=== PATIENT | female | born 1985 | race Caucasian/White ===

== ENCOUNTER 2016-12-31 13:21 | Inpatient (IN) | payer OTHER ==
[~2016-12-31] VITALS: Ht 162.6 cm; Wt 104.8 kg
[~2016-12-31 13:21] MED LIST: BACT800T5 PO; PYRI200T4 PO
[2017-01-02] VITALS (12 sets, daily range): BP systolic 87–120; BP diastolic 52–64; PULSE 65–79; RESP 15–20; TEMP 97.5–98.6; O2SAT 96
[2017-01-02] MEDS ORDERED: LACTATED RINGER'S 1000 ML INJ 1,000 ML IV ONE (10:19)
[2017-01-02] MEDS ORDERED: LACTATED RINGER'S 1000 ML INJ 1,000 ML IV SCH ×2 (10:49→17:47)
[2017-01-02 11:26] LABS: AUTOMATED NEUTROPHIL # 7.6 TH/MM3 (1.8-7.7); BASOPHIL % 0.1 % (0.0-2.0); EOSINOPHIL # 0.1 TH/MM3 (0-0.4); EOSINOPHIL % 0.6 % (0.0-4.0); HEMATOCRIT 30.7 % (35.0-46.0); HEMO FLAGS DIFF FINAL; LYMPH % 14.5 % (9.0-44.0); LYMPHOCYTE # 1.4 TH/MM3 (1.0-4.8); MEAN CORPUSCULAR HEMOGLOBIN 26.5 PG (27.0-34.0); MEAN CORPUSCULAR HGB CONC 32.8 % (32.0-36.0); MONO % 4.6 % (0.0-8.0); NEUT % 80.2 % (16.0-70.0); PLATELET COUNT 213 TH/MM3 (150-450); RED BLOOD COUNT 3.79 MIL/MM3 (4.00-5.30); RED CELL DISTRIBUTION WIDTH 14.1 % (11.6-17.2); WHITE BLOOD COUNT 9.5 TH/MM3 (4.0-11.0)
[2017-01-02] MEDS ORDERED: ceFAZolin 2 GM PREMIX 50 ML IV SCH (11:30)
[2017-01-02 11:38] LABS: BLOOD, URINE NEG (NEG); COMMENT (UR) CULT NOT INDICATED; CULTURE IF INDICATED CULT NOT INDICATED; GLUCOSE,URINE NEG (NEG); KETONE, URINE 40 mg/dL (NEG); MUCUS URINE FEW /lpf (OCC); NITRITE,URINE NEG (NEG); PH, URINE 6.5 (5.0-8.5); SQUAMOUS EPITHELIAL CELL URINE 2 /hpf (0-5); URINE COLOR YELLOW (YELLW/STRAW)
[2017-01-02] MEDS ORDERED: PANT40TA3 PO (11:51)
[2017-01-02] MEDS ORDERED: CITRIC ACID-SODIUM CITRATE LIQ 30 ML UDC PO SCH (12:00)
[2017-01-02] MEDS ORDERED: OXYTOCIN 10 UNIT/ML AMP ONE (12:25)
[2017-01-02] MEDS ORDERED: fentaNYL CITRATE 250 MCG/5 ML AMP ONE (12:25)
[2017-01-02] MEDS ORDERED: ACETAMINOPHEN 1000 MG/100 ML VIAL IV ONE (12:25)
[2017-01-02] MEDS ORDERED: MORPHINE SULFATE PF 5 MG/10 ML VIAL ONE (12:25)
[2017-01-02] MEDS ORDERED: EPIDURAL-DIPHENHYDRAMINE HCL 50 MG CAP PO PRN (12:30)
[2017-01-02] MEDS ORDERED: EPIDURAL-NO SYSTEMIC NARCOTICS PRN (12:30)
[2017-01-02] MEDS ORDERED: EPIDURAL-DIPHENHYDRAMINE HCL 50 MG/ML VIAL IV PUSH PRN (12:30)
[2017-01-02] MEDS ORDERED: EPIDURAL-DO NOT ADMINISTER ANTICOAGULANTS PRN (12:30)
[2017-01-02] MEDS ORDERED: EPIDURAL-NALOXONE HCL 0.4 MG/ML AMP IV PRN (12:30)
[2017-01-02] MEDS ORDERED: SIMETHICONE 80 MG CHEWABLE TAB PO PRN (13:00)
[2017-01-02] MEDS ORDERED: SODIUM CHLORIDE 0.9% FLUSH 10 ML FLUSH IV FLUSH PRN (13:00)
[2017-01-02] MEDS ORDERED: KETOROLAC TROMETHAMINE 60 MG/2 ML (IM) VIAL IM PRN ×2 (13:00)
[2017-01-02] MEDS ORDERED: OXYTOCIN 30 UNITS-500ML PREMIX 500 ML IV ONE (13:00)
[2017-01-02] MEDS ORDERED: DOCUSATE SODIUM 50 MG/SENNA 8.6 MG TAB PO PRN (13:00)
[2017-01-02] MEDS ORDERED: ONDANSETRON HCL 4 MG/2 ML VIAL IV PUSH PRN (13:00)
[2017-01-02] MEDS ORDERED: DEXAMETHASONE SOD PHOS 4 MG/ML VIAL IV ONE (13:35)
[2017-01-02] MEDS ORDERED: ONDANSETRON HCL 4 MG/2 ML VIAL IV PUSH ONE (13:35)
[2017-01-02] MEDS ORDERED: KETOROLAC TROMETHAMINE 60 MG/2 ML (IM) VIAL IM ONE (14:16)
[2017-01-02] MEDS ORDERED: OXYTOCIN 30 UNITS-500ML PREMIX 500 ML ONE (14:16)
[2017-01-02] MEDS: SODIUM CHLORIDE 0.9% FLUSH 10 ML FLUSH IV FLUSH SCH (21:25)
[2017-01-02] MEDS: IBUPROFEN 600 MG TAB PO PRN (21:33)
[2017-01-02] MEDS: oxyCODONE/ACETAMINOPHEN 5 MG/325 MG TAB PO PRN (21:33)
[2017-01-02] MEDS ORDERED: OXYTOCIN 30 UNITS-500ML PREMIX 500 ML IV PRN (23:00)
[2017-01-03 00:30] VITALS: BP 99/56; PULSE 63; RESP 16; TEMP 97.7
[2017-01-03] MEDS: oxyCODONE/ACETAMINOPHEN 5 MG/325 MG TAB PO PRN ×4 (04:26→20:32)
[2017-01-03] MEDS: IBUPROFEN 600 MG TAB PO PRN ×4 (04:27→23:23)
[2017-01-03 04:30] VITALS: BP 106/71; PULSE 65; RESP 16; TEMP 97.7
[2017-01-03 05:36] LABS: AUTOMATED NEUTROPHIL # 11.3 TH/MM3 (1.8-7.7); BASOPHIL % 0.1 % (0.0-2.0); EOSINOPHIL % 0.2 % (0.0-4.0); HEMATOCRIT 29.5 % (35.0-46.0); HEMO FLAGS DIFF FINAL; LYMPH % 9.9 % (9.0-44.0); LYMPHOCYTE # 1.3 TH/MM3 (1.0-4.8); MEAN CELL VOLUME 80.7 FL (80.0-100.0); MEAN CORPUSCULAR HEMOGLOBIN 27.2 PG (27.0-34.0); MEAN CORPUSCULAR HGB CONC 33.7 % (32.0-36.0); MONO % 6.5 % (0.0-8.0); NEUT % 83.3 % (16.0-70.0); PLATELET COUNT 229 TH/MM3 (150-450); RED BLOOD COUNT 3.65 MIL/MM3 (4.00-5.30); RED CELL DISTRIBUTION WIDTH 14.4 % (11.6-17.2); WHITE BLOOD COUNT 13.5 TH/MM3 (4.0-11.0)
[2017-01-03 07:25] VITALS: BP 109/53; PULSE 62; RESP 18; TEMP 98.8
[2017-01-03] MEDS: SODIUM CHLORIDE 0.9% FLUSH 10 ML FLUSH IV FLUSH SCH ×2 (07:43→21:00)
--- NOTE | 2017-01-03 08:31 | HHI.OB ---
Subjective Post Operative Day: 1 Remarks pain controlled, mod lochia, nico po, +void Objective Vitals/I&O Vital Signs Date Time Temp Pulse Resp B/P Pulse Ox O2 Delivery O2 Flow Rate FiO2 01/03/17 07:25 109/53 01/03/17 07:25 98.8 62 18 01/03/17 04:30 65 106/71 01/03/17 04:30 97.7 16 01/03/17 00:30 97.7 63 16 99/56 01/02/17 19:45 98.6 66 18 99/63 01/02/17 18:15 70 114/64 01/02/17 17:20 98.0 01/02/17 16:35 65 20 87/53 01/02/17 14:15 98.1 01/02/17 14:15 96 01/02/17 14:15 72 16 109/52 01/02/17 14:00 73 17 117/55 01/02/17 13:45 97.5 79 17 117/57 01/02/17 10:55 72 01/02/17 10:50 78 01/02/17 10:45 98.3 15 01/02/17 10:45 72 01/02/17 10:45 76 118/62 01/02/17 10:40 70 01/02/17 10:38 66 120/60 Result Diagram: 01/03/17 0440 Objective Remarks GENERAL: Well-nourished, well-developed patient. CARDIOVASCULAR: Regular rate and rhythm without murmurs, gallops, or rubs. RESPIRATORY: Breath sounds equal bilaterally. No accessory muscle use. ABDOMEN/GI: Abdomen soft, non-tender, bowel sounds present. Incision: Clean, dry and intact. Fundus: Firm, non-tender at umbilicus. GENITOURINARY: Light to moderate bleeding. EXTREMITIES: No cyanosis or edema, non-tender, without signs of DVT. Medications and IVs Current Medications Medications (Trade) Dose Ordered Sig/Raman Route Start Time Stop Time Status Last Admin (Lr 1000 ml Inj) 1,000 ml @ 100 mls/hr Q10H IV 01/02/17 17:47 01/03/17 13:46 01/02/17 21:24 (NS Flush) 2 ml BID IV FLUSH 01/02/17 21:00 01/02/17 21:25 (NS Flush) 2 ml UNSCH PRN IV FLUSH 01/02/17 13:00 (Mylicon Chew) 80 mg QID PRN PO 01/02/17 13:00 (Motrin) 600 mg Q6H PRN PO 01/02/17 13:00 01/03/17 04:27 (Toradol Inj) 30 mg Q6H PRN IM 01/02/17 13:00 01/03/17 12:59 (Percocet 5-325 Mg) 1 tab Q4H PRN PO 01/02/17 13:00 01/03/17 04:26 (Percocet 5-325 Mg) 2 tab Q4H PRN PO 01/02/17 13:00 (Mary-Colace) 2 tab Q12H PRN PO 01/02/17 13:00 01/03/17 04:26 (M-M-R Ii Inj) 0.5 ml ONCE ONCE SQ 01/03/17 16:00 01/03/17 16:01 (Boostrix Inj) 0.5 ml ONCE ONCE IM 01/03/17 16:00 01/03/17 16:01 (Zofran Inj) 4 mg Q6H PRN IV PUSH 01/02/17 13:00 Miscellaneous Information NO SYSTEMIC NARCOTICS TO BE GIVEN FO... UNSCH PRN .XX 01/02/17 12:30 01/03/17 12:29 (Narcan Inj) 0.4 mg UNSCH PRN IV 01/02/17 12:30 01/03/17 12:29 (Benadryl Inj) 25 mg Q6H PRN IV PUSH 01/02/17 12:30 01/03/17 12:29 (Benadryl) 50 mg Q6H PRN PO 01/02/17 12:30 01/03/17 12:29 Miscellaneous Information ALL NURSING DEPARTMENTS UNSCH PRN .XX 01/02/17 12:30 01/03/17 12:29 Assessment/Plan Problem List: (1) delivery, delivered, current hospitalization Assessment and Plan routine pp care Matthew Ford MD Jan 03, 2017 08:31
[2017-01-03] MEDS ORDERED: DIPHTH/TETANUS/ACEL PERTUSSIS (BOOSTER) 0.5 ML VIAL/PFS IM ONE (16:00)
[2017-01-03] MEDS ORDERED: MEASLES, MUMPS, RUBELLA VACCINE 0.5 ML VIAL SQ ONE (16:00)
[2017-01-03 20:21] VITALS: BP 118/62; PULSE 74; RESP 18; TEMP 97.8
[2017-01-03 20:38] VITALS: BP 118/62; PULSE 74; RESP 18; TEMP 97.8
[2017-01-04] MEDS: oxyCODONE/ACETAMINOPHEN 5 MG/325 MG TAB PO PRN ×5 (04:15→23:03)
[2017-01-04 07:40] VITALS: BP 89/57; PULSE 66; RESP 16; TEMP 97.8
[2017-01-04] MEDS: IBUPROFEN 600 MG TAB PO PRN ×3 (09:12→23:04)
[2017-01-04] MEDS ORDERED: POLYETHYLENE GLYCOL 17 GM PKG PO SCH (13:00)
--- NOTE | 2017-01-04 13:03 | HHI.OB ---
Subjective Post Operative Day: 1 Remarks pain controlled, mod lochia, +void, no flatus. c/o constipation Objective Vitals/I&O Vital Signs Date Time Temp Pulse Resp B/P Pulse Ox O2 Delivery O2 Flow Rate FiO2 01/04/17 07:40 97.8 66 16 89/57 01/03/17 20:38 74 18 118/62 01/03/17 20:38 97.8 01/03/17 20:21 74 118/62 01/03/17 20:21 97.8 18 Result Diagram: 01/03/17 0440 Objective Remarks GENERAL: Well-nourished, well-developed patient. CARDIOVASCULAR: Regular rate and rhythm without murmurs, gallops, or rubs. RESPIRATORY: Breath sounds equal bilaterally. No accessory muscle use. ABDOMEN/GI: Abdomen soft, non-tender, bowel sounds present. Incision: Clean, dry and intact with shaye Fundus: Firm, non-tender at umbilicus. GENITOURINARY: Light to moderate bleeding. EXTREMITIES: No cyanosis or edema, non-tender, without signs of DVT. Medications and IVs Current Medications Medications (Trade) Dose Ordered Sig/Ramna Route Start Time Stop Time Status Last Admin (NS Flush) 2 ml BID IV FLUSH 01/02/17 21:00 01/02/17 21:25 (NS Flush) 2 ml UNSCH PRN IV FLUSH 01/02/17 13:00 (Mylicon Chew) 80 mg QID PRN PO 01/02/17 13:00 (Motrin) 600 mg Q6H PRN PO 01/02/17 13:00 01/04/17 09:12 (Percocet 5-325 Mg) 1 tab Q4H PRN PO 01/02/17 13:00 01/03/17 16:25 (Percocet 5-325 Mg) 2 tab Q4H PRN PO 01/02/17 13:00 01/04/17 09:12 (Mary-Colace) 2 tab Q12H PRN PO 01/02/17 13:00 01/03/17 04:26 (Zofran Inj) 4 mg Q6H PRN IV PUSH 01/02/17 13:00 Assessment/Plan Problem List: (1) delivery, delivered, current hospitalization Plan: will start miralax as colace, pericolace on back order Assessment and Plan routine pp care Matthew Ford MD Jan 04, 2017 13:03
[2017-01-04 20:00] VITALS: BP 93/50; PULSE 68; RESP 18; TEMP 98
[2017-01-05] MEDS: oxyCODONE/ACETAMINOPHEN 5 MG/325 MG TAB PO PRN ×2 (04:11→09:55)
[2017-01-05 07:52] VITALS: BP 113/57; PULSE 63; RESP 18; TEMP 97.9
[2017-01-05] MEDS: IBUPROFEN 600 MG TAB PO PRN (09:55)
[2017-01-05] MEDS ORDERED: IBUP-232 PO (10:45)
[2017-01-05] MEDS ORDERED: OXYC1TAB63 PO (10:45)
--- NOTE | 2017-01-05 10:47 | HHI.DCPOC ---
Discharge Care Plan Diagnosis: (1) delivery, delivered, current hospitalization Your Health Problems Are: delivery Report Symptoms to Your Doctor -Temperature above 100.5 degrees -Redness, of incision or excessive or foul smelling drainage -Unusual pain or calf pain -Increased vaginal bleeding -Painful or difficulty urinating -Feelings of extreme sadness or anxiety after 2 weeks Goals to Promote Your Health * To prevent worsening of your condition and complications * To maintain your health at the optimal level Directions to Meet Your Goals Take your medications as prescribed Follow your dietary instruction Follow activity as directed Ensure plenty of rest for recovery Drink fluids for hydration Keep your appointments as scheduled Take your immunizations and boosters as scheduled If your symptoms worsen call your PCP, if no PCP go to Urgent Care Center or Emergency Room Smoking is Dangerous to Your Health. Avoid second hand smoke Call the 24-hour crisis hotline for domestic abuse at Matthew Ford MD Jan 05, 2017 10:47
--- NOTE | 2017-01-07 09:13 | MP ---
cc: EARNEST VAZQUEZ M.D. DATE OF SURGERY 01/02/17 DATE OF 1985 PREOPERATIVE DIAGNOSIS Intrauterine at 39 weeks gestation with previous section times four with undesired fertility. POSTOPERATIVE DIAGNOSIS Intrauterine at 39 weeks gestation with previous section times four with undesired fertility. PROCEDURE Repeat low transverse section with bilateral tubal ligation. OPERATIONS CONTROLLER Dr. Chad Vazquez Anesthesia Spinal FINDINGS IN SURGERY A viable male infant weighing 7 pounds 15 ounces with Apgars nine and nine. Normal-appearing tubes and ovaries, minimal scarring. BLOOD LOSS 800 mL. COMPLICATIONS None PROCEDURE IN DETAIL After proper consents were obtained, blood typed and screen. The patient was taken to the operating room where spinal anesthetic was placed. She was then placed in dorsal position, sterilely prepped and draped and a Farfan catheter was placed. At this time, using a sharp knife I went through her prior Pfannenstiel skin incision. This was carried down to the fascia using Bovie cautery. Fascia was nicked in the midline, extended superolaterally on each side. We then did a sharp dissection of the muscle bellies off of the fascia. We identified the peritoneum, grabbed it with two hemostats, entered sharply with Metzenbaum scissors. She did have some omental adhesions to the anterior abdominal wall which we took down bluntly with the Bovie cautery without difficulty. We then were able to develop a bladder flap. Bladder blade was placed. We went ahead and placed a transverse incision in the lower uterine segment. We extended that using finger fracture technique. Rupture of membranes revealed clear fluid. We deliver the vertex with the aid of the kiwi suction. Bulb suction to the oropharynx and nares. Body was delivered entirely. Cord was delayed clamping for 4-5 seconds then clamped and cut in between and the was handed to the team in attendance. A viable male, Apgars 03/14 weighing 7 pounds 15 ounces. At this time, cord blood sample was obtained. Placenta was removed. Uterus was exteriorized, wiped clean of clots and debris. The uterine incision was closed with a #1 chromic suture starting at each apex meeting in the midline in a running interlocking fashion with excellent hemostasis noted. We then turned our attention to the right tube which was grasped in the mid ampullary region. A 0 plain tie was placed beneath a 1.5 cm segment of tube, a second tie was placed beneath that. The tube was cut off for permanent pathology. Hemostasis assured. We then turned our attention to the left tube, however, it was scarred down to the ovary and the mesosalpinx, so I went ahead and did a fimbriectomy on that side which was free. We came across the fimbria and about a 1 cm segment of tube using the Camille clamp x2, cut that off, placed 0 plain ties beneath that with excellent hemostasis noted. At this time, we performed irrigation of the abdominopelvic cavity. We placed the uterus back into the cavity. The tubal sites were hemostatic. The incision was hemostatic. I reapproximated the muscles using a #1 chromic suture x1. We then closed the fascia using 0 Vicryl starting at each apex in the midline in running fashion. Irrigation was performed at subcu. Hemostasis was achieved with the Bovie cautery. The skin was closed was closed with shaye. All sponge, lap, needle count were correct x3. The patient was stable to the recovery room. MD DANA De Luna/ /9:12 AM /9:02 AM
== END 2017-01-05 13:25 | disposition home or self-care (01) | DRG 766 ==
LOC: H2EB 01-02 10:10 → H1EA 01-02 14:42
PROVIDERS: ADMIT Obstetrics & Gynecology; ATTEND Obstetrics & Gynecology
PROC: 10D00Z1 Extraction of Products of Conception, Low, Open Approach (ICD-10-PCS; principal; 2017-01-02)
PROC: 0UB70ZZ Excision of Bilateral Fallopian Tubes, Open Approach (ICD-10-PCS; 2017-01-02)
DX: O34.211 Maternal care for low transverse scar from previous cesarean delivery (principal); Z30.2 Encounter for sterilization; Z3A.39 39 weeks gestation of pregnancy; Z37.0 Single live birth
CPT/HCPCS: 59025; 81001; 85025; 86850; 86900; 86901; 86920; 86922; 88302; J0131; J0690; J1100; J1885; J2274; J2405; J2590; J3010; J7120